=== PATIENT | male | born 1965 | race Caucasian/White ===

== ENCOUNTER → 2019-07-14 | Outpatient (CLI) | payer OTHER ==
[~2019-07-14] MED LIST: CALC-126 PO; LISI-170 PO; LISI1TAB20 PO; PAPA1TAB8 PO
[2019-07-14 16:57] LABS: MICROSCOPIC AUTO
[2019-07-14 16:59] LABS: CULTURE INDICATED? YES
[2019-07-14 17:02] LABS: ALANINE AMINOTRANSFERASE 39 U/L (12-78); ANION GAP 5 mmol/L (5-15); CALCIUM 8.6 mg/dL (8.5-10.1); CHLORIDE 101 mmol/L (98-107); CREATININE 1.09 mg/dL (0.7-1.3)
[2019-07-14 17:04] LABS: ALKALINE PHOSPHATASE 80 U/L (45-117); BILIRUBIN,TOTAL 0.8 mg/dL (0.2-1.0); TOTAL PROTEIN 7.7 g/dL (6.4-8.2)
== END | disposition home or self-care (01) ==
LOC: STAR 15:51
PROVIDERS: ATTEND Thoracic Surgery (Cardiothoracic Vascular Surgery)
DX: Z01.818 Encounter for other preprocedural examination (principal)
CPT/HCPCS: 36415; 80053; 81001; 87086

== ENCOUNTER 2019-07-20 06:19 | Day surgery (SDC) | payer OTHER ==
[~2019-07-20] VITALS: Ht 180.3 cm; Wt 113.0 kg
[2019-07-20] MEDS ORDERED: LACTATED RINGERS 1,000 ML IV SCH ×2 (06:39→08:34)
[2019-07-20 06:43] VITALS: BP 124/87
[2019-07-20] MEDS ORDERED: BUPIVACAINE/PF-EPI 0.5% 1:200K ONE (06:44)
[2019-07-20] MEDS ORDERED: LIDOCAINE-MPF 1%, 2ML INFIL ONE (07:00)
[2019-07-20] MEDS ORDERED: INDOCYANINE GREEN 25 MG VIAL IVPush STA (07:00)
[2019-07-20] MEDS ORDERED: INDOCYANINE GREEN 25 MG VIAL ONE (07:09)
[2019-07-20] MEDS ORDERED: EPHEDRINE 50 MG/ML, 1ML ONE (07:18)
[2019-07-20] MEDS ORDERED: LIDOCAINE-MPF 2% ,5ML ONE (07:21)
[2019-07-20] MEDS ORDERED: FENTANYL PF 250 MCG/5ML ONE (07:21)
[2019-07-20] MEDS ORDERED: MIDAZOLAM 1 MG/ML, 2ML ONE (07:21)
[2019-07-20] MEDS ORDERED: DEXAMETHASONE 4 MG/ML, 1ML ONE (07:36)
[2019-07-20] MEDS ORDERED: SUCCINYLCHOLINE 20 MG/ML, 10ML ONE (07:36)
[2019-07-20] MEDS ORDERED: GLYCOPYRROLATE 0.2MG/1ML, 5ML ONE (07:36)
[2019-07-20] MEDS ORDERED: KETOROLAC 30 MG/1 ML ONE (07:36)
[2019-07-20] MEDS ORDERED: CEFAZOLIN 1,000 MG ONE (07:36)
[2019-07-20] MEDS ORDERED: ONDANSETRON 2MG/ML, 2ML ONE (07:36)
[2019-07-20] MEDS ORDERED: PROPOFOL 10 MG/ML, 20ML ONE (07:36)
[2019-07-20] MEDS ORDERED: ROCURONIUM 10MG/ML,5ML ONE (07:36)
[2019-07-20] MEDS ORDERED: NEOSTIGMINE 1 MG/ML, 10ML ONE (07:36)
[2019-07-20] MEDS ORDERED: hydrALAzine 20 MG/ML, 1ML IV PRN (08:00)
[2019-07-20] MEDS ORDERED: ONDANSETRON 2MG/ML, 2ML IV PRN (08:00)
[2019-07-20] MEDS ORDERED: HYDROmorphone 2 MG/ML, 1ML IVPush PRN (08:00)
[2019-07-20] MEDS ORDERED: LABETALOL 5MG/ML, 20ML IV PRN (08:00)
[2019-07-20] MEDS ORDERED: MEPERIDINE/PF 25MG/ML,1ML IVPush PRN (08:00)
[2019-07-20] MEDS ORDERED: PROMETHAZINE 25 MG/ML, 1ML IV PRN (08:00)
[2019-07-20] MEDS ORDERED: EPHEDRINE 50 MG/ML, 1ML IVPush PRN (08:00)
[2019-07-20] MEDS ORDERED: ACETAMINOPHEN 325 MG TABLET PO PRN (08:00)
[2019-07-20] MEDS ORDERED: OXYcodone 5 MG/5 ML ORAL.SOL UDC ONE (08:51)
[2019-07-20] MEDS: OXYcodone 5 MG/5 ML ORAL.SOL UDC PO PRN ×2 (08:52→09:37)
[2019-07-20] MEDS ORDERED: FENTANYL PF 100 MCG/2ML ONE (08:53)
[2019-07-20] MEDS: FENTANYL PF 100 MCG/2ML IV PRN ×2 (08:54→08:59)
[2019-07-20] MEDS ORDERED: morphine SULFATE 10 MG/ML, 1ML IVPush PRN (09:00)
[2019-07-20] MEDS ORDERED: HYDROcodone/APAP 5/325 TABLET PO PRN (09:00)
[2019-07-20] MEDS ORDERED: ONDANSETRON 2MG/ML, 2ML IVPush PRN (09:00)
== END 2019-07-20 10:50 | disposition home or self-care (01) ==
LOC: OUT 06:19
PROVIDERS: ATTEND Thoracic Surgery (Cardiothoracic Vascular Surgery)
DX: K82.8 Other specified diseases of gallbladder (principal); K81.1 Chronic cholecystitis; K66.0 Peritoneal adhesions (postprocedural) (postinfection); I10 Essential (primary) hypertension; Z79.899 Other long term (current) drug therapy; Z90.81 Acquired absence of spleen; Z98.890 Other specified postprocedural states; Z82.49 Family history of ischemic heart disease and other diseases of the circulatory system
CPT/HCPCS: 47562; 88304; J0330; J0690; J1100; J1885; J2250; J2405; J2704; J2710; J3010; J7120